=== PATIENT | male | born 1990 | race Caucasian/White ===

== ENCOUNTER 2017-11-23 19:48 | Emergency (ER) | payer OTHER ==
[~2017-11-23] VITALS: Ht 172.7 cm; Wt 90.7 kg
[~2017-11-23 19:48] MED LIST: NAPR500 PO; Zithromax250 MG PO; Zofran Odt4 MG SL
[2017-11-23 20:53] LABS: Influenza A Negative (NEGATIVE); Influenza B Negative (NEGATIVE)
[2017-11-23] MEDS ORDERED: Zithromax250 MG PO (21:23)
[2017-11-23] MEDS ORDERED: Cheratussin AC118 ML PO (21:23)
== END 2017-11-23 21:30 | disposition home or self-care (01) ==
LOC: ER 19:48
PROVIDERS: Physician Assistant
DX: R05 Cough (principal); Z90.89 Acquired absence of other organs
CPT/HCPCS: 71020; 87804; 99283